=== PATIENT | female | born 1995 | race Hispanic/Latino ===

== ENCOUNTER 2018-04-23 18:51 | Inpatient (IN) | payer OTHER ==
[~2018-04-23] VITALS: Ht 165.1 cm; Wt 93.9 kg
[2018-04-23] MEDS ORDERED: LACTATED RINGERS 1000ML 1,000 ML IV PRN (20:07)
[2018-04-23 20:20] LABS: APPEARANCE,URINE Clear (CLEAR); BILIRUBIN,URINE Negative (NEGATIVE); COLOR,URINE Yellow (YELLOW); GLUCOSE, URINE (UA) Negative (NEGATIVE); KETONES,URINE Negative (NEGATIVE); LEUKOCYTE ESTERASE ,URINE Small (NEGATIVE); NITRATE,URINE Negative (NEGATIVE); OCCULT BLOOD,URINE Negative (NEGATIVE); PH,URINE 5.5 (5.0-8.0); PROTEIN,URINE Negative (NEGATIVE)
[2018-04-23] MEDS ORDERED: OXYTOCIN-LR 20 UNITS/1000 ML 1,000 ML IV SCH (20:30)
[2018-04-23 20:37] LABS: BACTERIA,URINE Few /HPF (None Seen); MUCUS,URINE Few LPF (None Seen); RBC,URINE 0-1 /HPF (0-1); SQUAMOUS EPITHELIAL CELL,UR Few /HPF (0-2)
[2018-04-23 22:02] LABS: HEMATOCRIT 36.1 % (36-48); MEAN CORPUSCULAR HEMOGLOBIN 28.7 pg (27.0-33.0); MEAN CORPUSCULAR HGB CONC 33.5 g/dL (32.0-36.0); MEAN CORPUSCULAR VOLUME 85.7 fL (79-99); PLATELET COUNT (AUTO) 261 K/uL (130-400); RED BLOOD CELL COUNT(AUTO) 4.21 MIL/uL (4.00-5.50); RED CELL DISTRIBUTION WIDTH 14.3 % (11.0-15.5); WHITE BLOOD COUNT (AUTO) 9.8 K/uL (4.8-10.8)
[2018-04-24] MEDS ORDERED: LACTATED RINGERS 1000ML 1,000 ML IV ONE ×2 (04:05→10:20)
[2018-04-24] MEDS ORDERED: OXYTOCIN 10 USP UNITS/ML ONE ×3 (04:05→16:12)
[2018-04-24] MEDS ORDERED: OXYTOCIN 10 USP UNITS/ML 20 UNIT in LACTATED RINGERS 1000ML 1,000 ML IV SCH (05:00)
[2018-04-24] MEDS ORDERED: MEPERIDINE-PF 50 MG/ML SYG IVP ONE (06:45)
[2018-04-24] MEDS ORDERED: PROMETHAZINE HCL 25 MG/ML 1ML AMPULE IM SCH ×2 (06:45→08:00)
[2018-04-24] MEDS ORDERED: MEPERIDINE-PF 25 MG/ML SYG ONE (07:53)
[2018-04-24] MEDS ORDERED: MEPERIDINE-PF 25 MG/ML SYG IVP ONE (08:00)
[2018-04-24 10:35] VITALS: BP 117/60
[2018-04-24] MEDS ORDERED: PNV1TABL17 PO (10:40)
[2018-04-24] MEDS ORDERED: IBUPROFEN 600 MG TABLET ONE (10:50)
[2018-04-24] MEDS ORDERED: ACETAMINOPHEN 325 MG TAB PO PRN (11:30)
[2018-04-24] MEDS ORDERED: BENZOCAINE/LANOLIN/ALOE VERA 60 ML AEROSOL TP PRN (11:30)
[2018-04-24] MEDS ORDERED: ACETAMINOPHEN-CODEINE 300/30MG TAB PO PRN (11:30)
[2018-04-24] MEDS ORDERED: WITCH HAZEL 1 PAD TP PRN (11:30)
[2018-04-24 11:41] VITALS: BP 119/71
[2018-04-24 15:44] VITALS: BP 122/81
[2018-04-24] MEDS: IBUPROFEN 600 MG TABLET PO PRN (16:21)
[2018-04-24 20:00] VITALS: BP 122/58
[2018-04-24] MEDS: DOCUSATE SODIUM 100 MG CAP PO SCH (20:15)
[2018-04-24 23:48] VITALS: BP 119/68
[2018-04-25 04:17] VITALS: BP 110/63
[2018-04-25 05:30] LABS: HEMATOCRIT 30.8 % (36-48); MEAN CORPUSCULAR HEMOGLOBIN 29.1 pg (27.0-33.0); MEAN CORPUSCULAR HGB CONC 33.9 g/dL (32.0-36.0); MEAN CORPUSCULAR VOLUME 85.8 fL (79-99); NUCLEATED RED BLOOD CELLS 0.1 % (0.0-0.19); PLATELET COUNT (AUTO) 211 K/uL (130-400); RED BLOOD CELL COUNT(AUTO) 3.59 MIL/uL (4.00-5.50); WHITE BLOOD COUNT (AUTO) 8.5 K/uL (4.8-10.8)
[2018-04-25 07:39] VITALS: BP 124/77
[2018-04-25 08:21] LABS: HEPATITIS Bs ANTIGEN SCREEN P Negative (Negative)
[2018-04-25] MEDS: DOCUSATE SODIUM 100 MG CAP PO SCH (08:47)
[2018-04-25] MEDS: IBUPROFEN 600 MG TABLET PO PRN (08:48)
[2018-04-25 11:14] VITALS: BP 119/70
== END 2018-04-25 13:15 | disposition home or self-care (01) | DRG 775 ==
LOC: LDH 18:51 → WSH 04-24 10:30
PROVIDERS: ADMIT Obstetrics & Gynecology; ATTEND Obstetrics & Gynecology
PROC: 10E0XZZ Delivery of Products of Conception, External Approach (ICD-10-PCS; principal; 2018-04-24)
PROC: 0HQ9XZZ Repair Perineum Skin, External Approach (ICD-10-PCS; 2018-04-24)
PROC: 10907ZC Drainage of Amniotic Fluid, Therapeutic from Products of Conception, Via Natural or Artificial Opening (ICD-10-PCS; 2018-04-24)
PROC: 3E0234Z Introduction of Serum, Toxoid and Vaccine into Muscle, Percutaneous Approach (ICD-10-PCS; 2018-04-24)
DX: O70.0 First degree perineal laceration during delivery (principal); D62 Acute posthemorrhagic anemia; O90.81 Anemia of the puerperium; Z3A.38 38 weeks gestation of pregnancy; Z37.0 Single live birth; Z23 Encounter for immunization
CPT/HCPCS: 36415; 81001; 85027; 86592; 86850; 86900; 86901; 87340; A4351; J2175; J2550; J2590; J7120; Q2038